=== PATIENT | male | born 1990 | race African-American/Black ===

== ENCOUNTER 2017-01-09 08:02 | Emergency (ER) | payer OTHER ==
[~2017-01-09] VITALS: Ht 175.3 cm; Wt 83.9 kg
[2017-01-09] MEDS ORDERED: KETOROLAC 60 MG/2 ML VIAL (J1885) IM ONE (08:15)
[2017-01-09] MEDS ORDERED: KETOROLAC 30 MG/ML VIAL (J1885) IV ONE (08:30)
--- NOTE | 2017-01-09 09:20 | REP ---
LUMBOSACRAL SPINE: Five views of the lumbosacral spine are performed. There is no fracture or dislocation. The vertebral bodies are normal in height and are well aligned with normal lumbar lordosis. There is no spondylolysis or spondylolisthesis. Disc spaces are well preserved. Posterior elements are intact. IMPRESSION: No fracture or dislocation. Signed by Gregory Guallpa MD 01/09/2017 07:43 P
[2017-01-09] MEDS ORDERED: NAPR500T2 PO (09:39)
[2017-01-09] MEDS ORDERED: SKEL-29 PO (09:39)
[2017-01-09 09:55] VITALS: BP 114/68
== END 2017-01-09 09:56 | disposition home or self-care (01) ==
LOC: EDBD 08:02 → M ED 09:35 → EDBD 09:35 → M ED 09:56
DX: S39.012A Strain of muscle, fascia and tendon of lower back, initial encounter (principal); W10.9XXA Fall (on) (from) unspecified stairs and steps, initial encounter; Y92.59 Other trade areas as the place of occurrence of the external cause; Y93.01 Activity, walking, marching and hiking; Y99.0 Civilian activity done for income or pay; G89.29 Other chronic pain
CPT/HCPCS: 72110; 96374; 96375; 99282; J3360

== ENCOUNTER 2017-06-12 09:32 | Emergency (ER) | payer OTHER ==
[~2017-06-12 09:32] MED LIST: NAPR500T3 PO; SKEL800T97 PO
[2017-06-12] MEDS ORDERED: DULO1CAP3 (09:39)
[2017-06-12] MEDS ORDERED: ONDA4TAB6 (09:39)
[2017-06-12] MEDS ORDERED: VITA10002 (09:39)
[2017-06-12] MEDS ORDERED: AMIT25TA (09:39)
[2017-06-12] MEDS ORDERED: TRAZ50TA11 (09:39)
[2017-06-12] MEDS ORDERED: SUMA100T2 (09:39)
[2017-06-12] MEDS ORDERED: AUGM875T28 PO (11:15)
[2017-06-12] MEDS ORDERED: OXYMETAZOLINE NASAL SPRAY (AFRIN) ONE (11:15)
[2017-06-12] MEDS ORDERED: ZOFR4TAB3 PO (11:15)
[2017-06-12] MEDS ORDERED: KETOROLAC 60 MG/2 ML VIAL (J1885) IM ONE (11:15)
[2017-06-12] MEDS ORDERED: REGL10TA6 PO (11:15)
[2017-06-12] MEDS ORDERED: METOCLOPRAMIDE 10 MG TAB PO ONE (11:15)
[2017-06-12] MEDS ORDERED: AFRI0.056 (11:15)
[2017-06-12] MEDS ORDERED: ONDANSETRON 4 MG ORAL DISINTEGRATING TAB (S0181) PO ONE (12:00)
[2017-06-12] MEDS ORDERED: AUGMENTIN 875 MG TAB PO ONE (12:00)
[2017-06-12 12:01] VITALS: BP 138/76
== END 2017-06-12 12:03 | disposition home or self-care (01) ==
LOC: M ED 09:32
DX: G89.29 Other chronic pain (principal); R51 Headache; H66.92 Otitis media, unspecified, left ear; J01.90 Acute sinusitis, unspecified; Z79.899 Other long term (current) drug therapy
CPT/HCPCS: 96372; 99282; J1885